=== PATIENT | male | born 1950 | race Caucasian/White ===

== ENCOUNTER → 2016-06-25 | Outpatient (REF) | payer OTHER ==
[2016-06-25 11:09] LABS: BLOOD UREA NITROGEN 22 MG/DL (7-18); CREATININE FOR GFR 0.85 MG/DL (0.70-1.30); GLOMERULAR FILTRATION RATE > 60.0 (>49)
== END ==
LOC: M LABDRAW1 10:55
PROVIDERS: ATTEND Nurse Practitioner Adult Health
DX: R31.0 Gross hematuria (principal)

== ENCOUNTER → 2016-11-04 | Outpatient (REF) | payer OTHER | LOC: M LABDRAW1 11:34 | PROVIDERS: ATTEND Internal Medicine Endocrinology, Diabetes & Metabolism | DX: E11.65 Type 2 diabetes mellitus with hyperglycemia (principal) ==

== ENCOUNTER → 2016-12-29 | Outpatient (REF) | payer OTHER | LOC: M LABDRAW1 18:02 | PROVIDERS: ATTEND Nurse Practitioner Adult Health | DX: N40.1 Benign prostatic hyperplasia with lower urinary tract symptoms (principal) ==

== ENCOUNTER → 2017-02-24 | Outpatient (CLI) | payer OTHER ==
[2017-02-26 00:06] LABS: Lyme Disease IgG/IgM Antibodie <0.91 ISR (0.00-0.90); Lyme Disease IgM Ab Quantitati <0.80 index (0.00-0.79)
== END ==
LOC: M SMT 09:13
PROVIDERS: ATTEND Physician Assistant
DX: R53.83 Other fatigue (principal)

== ENCOUNTER 2017-06-22 11:08 | Day surgery (SDC) | payer BC, OTHER ==
[2017-06-22] MEDS ORDERED: NS 1,000 ML IV (11:15)
[2017-06-22 12:06] LABS: BEDSIDE GLUCOSE 107 MG/DL (80-115)
[2017-06-22] MEDS ORDERED: LIDOCAINE 2% INJ 100 MG/5 ML SDV (FOR ANES.) As Ordered (13:00)
[2017-06-22] MEDS ORDERED: PROPOFOL 200 MG/20 ML VIAL As Ordered ×2 (13:00→13:01)
== END 2017-06-22 13:50 | disposition home or self-care (01) ==
LOC: M OPP 11:08
DX: Z12.11 Encounter for screening for malignant neoplasm of colon (principal); K64.0 First degree hemorrhoids; K57.30 Diverticulosis of large intestine without perforation or abscess without bleeding; D12.3 Benign neoplasm of transverse colon; Z86.010 Personal history of colon polyps; I10 Essential (primary) hypertension; E78.5 Hyperlipidemia, unspecified; K21.9 Gastro-esophageal reflux disease without esophagitis; N40.0 Benign prostatic hyperplasia without lower urinary tract symptoms; R51 Headache; R06.83 Snoring; E10.8 Type 1 diabetes mellitus with unspecified complications; Z79.4 Long term (current) use of insulin; Z79.82 Long term (current) use of aspirin; Z79.899 Other long term (current) drug therapy
CPT/HCPCS: 45380

== ENCOUNTER → 2018-01-11 | Outpatient (REF) | payer MEDICARE, OTHER, BC ==
[2018-01-11 13:40] LABS: PROSTATIC SPECIFIC AG MONITOR 0.54 NG/ML (< 4.0)
[2018-01-11 13:46] LABS: TESTOSTERONE 365 NG/DL (241-827)
== END ==
LOC: M LABDRAW1 09:17
DX: N40.1 Benign prostatic hyperplasia with lower urinary tract symptoms (principal)
CPT/HCPCS: 84403

== ENCOUNTER → 2018-05-23 | Outpatient (REF) | payer MEDICARE, OTHER ==
[2018-05-23 16:19] LABS: ALBUMIN 4.4 GM/DL (3.2-5.2); ALBUMIN/GLOBULIN RATIO 1.47 (1.00-1.93); ALKALINE PHOSPHATASE 39 U/L (45-117); ALT/SGPT 47 U/L (12-78); ANION GAP 8 MEQ/L (8-16); AST/SGOT 24 U/L (7-37); BILIRUBIN,TOTAL 0.4 MG/DL (0.2-1.0); BLOOD UREA NITROGEN 32 MG/DL (7-18); CALCIUM LEVEL 9.2 MG/DL (8.8-10.2); CARBON DIOXIDE LEVEL 27 MEQ/L (21-32); CHLORIDE LEVEL 105 MEQ/L (98-107); CHOLESTEROL LEVEL 144 MG/DL (<200); CHOLESTEROL RISK RATIO 4.235 (<5); CREATININE FOR GFR 1.42 MG/DL (0.70-1.30); FERRITIN 116 NG/ML (26-388); GLOMERULAR FILTRATION RATE 53.3 (>49); GLUCOSE, FASTING 187 MG/DL (70-100); HDL CHOLESTEROL 34 MG/DL (>40); IRON (FE) 82 UG/DL (65-175); LDL CHOLESTEROL 65 MG/DL (<100); NON-HDL-C 110 MG/DL; PERCENT SATURATION 20.2 % (19.7-50.0); POTASSIUM SERUM 4.9 MEQ/L (3.5-5.1); SODIUM LEVEL 140 MEQ/L (136-145); TOTAL IRON BINDING CAPACITY 406 UG/DL (250-450); TOTAL PROTEIN 7.4 GM/DL (6.4-8.2); TRIGLYCERIDES LEVEL 225 MG/DL (<150)
[2018-05-23 16:32] LABS: BASO % 0.6 % (0.0-1.0); EOS # 0.1 10^3/uL (0.0-0.50); EOS % 1.6 % (0.0-3.0); HEMATOCRIT 50.1 % (42.0-52.0); HEMOGLOBIN 16.9 g/dl (13.5-17.5); IMMATURE GRANULOCYTE % 0.5 % (0-3.0); LYMPH % 31.3 % (24.0-44.0); MEAN CORPUSCULAR HEMOGLOBIN 29.3 pg (27.0-33.0); MEAN CORPUSCULAR HGB CONC 33.7 g/dl (32.0-36.5); MONO # 0.6 10^3/uL (0.0-0.8); MONO % 10.1 % (0.0-5.0); NEUTROPHILS # 3.5 10^3/uL (1.8-7.7); NEUTROPHILS % 55.9 % (36.0-66.0); PLATELET COUNT, AUTOMATED 219 10^3/uL (150-450); RED BLOOD COUNT 5.76 10^6/uL (4.30-6.10); WHITE BLOOD COUNT 6.2 10^3/uL (4.0-10.0)
[2018-05-23 17:12] LABS: ESTIMATED AVERAGE GLUCOSE 157 MG/DL (60-110); HEMOGLOBIN A1c 7.1 %
[2018-05-25 14:16] LABS: PSA TOTAL 0.5 ng/mL (0.0-4.0)
== END ==
LOC: M LABDRAW1 12:50
DX: E11.9 Type 2 diabetes mellitus without complications (principal); N40.1 Benign prostatic hyperplasia with lower urinary tract symptoms; E83.10 Disorder of iron metabolism, unspecified
CPT/HCPCS: 83550

== ENCOUNTER → 2018-06-26 | Outpatient (REF) | payer MEDICARE, OTHER ==
[~2018-06-26] MED LIST: ASPI1TAB PO; BENI1TAB3 PO; FARX1TAB3 PO; FENO50CA PO; GLIP10TA6 PO; GLIP5TAB20 PO; GLIP5TAB8 PO; IBUPOTC PO; LANTINJ4 SC; LEVI20TA39 PO; METF10004 PO; MULT1TAB10 PO; TYLE325C PO; VITA100067 PO; VITA50005 PO; ZOCO40TA PO; [UNRECOGNIZED DRUG - CODE] PO
[2018-06-26 18:31] LABS: CALCIUM LEVEL 9.2 MG/DL (8.8-10.2); CREATININE FOR GFR 1.34 MG/DL (0.70-1.30); POTASSIUM SERUM 4.3 MEQ/L (3.5-5.1)
[2018-06-26 18:43] LABS: TOTAL 25(OH) VITAMIN D 60.9 NG/ML (30.0-100.0)
== END ==
LOC: M LABDRAW1 17:09
PROVIDERS: ATTEND Nurse Practitioner Family
DX: E11.65 Type 2 diabetes mellitus with hyperglycemia (principal); E55.9 Vitamin D deficiency, unspecified

== ENCOUNTER → 2022-11-08 | Outpatient (REF) | payer MEDICARE, OTHER ==
[~2022-11-08] MED LIST changes: -ASPI1TAB PO; +ASPI81TA26 PO; -BENI1TAB3 PO; +OLME20TA55 PO; +SIMV-254 PO; -ZOCO40TA PO
[2022-11-08 19:38] LABS: CREATININE, URINE 15.8 MG/DL; MAU/CREAT RATIO 75.9 MCG/MG (0.0-30.0)
== END ==
LOC: M LAB REF 18:25
PROVIDERS: ATTEND Internal Medicine
DX: E11.65 Type 2 diabetes mellitus with hyperglycemia (principal)

== ENCOUNTER 2023-01-26 06:28 | Day surgery (SDC) | payer MEDICARE, BC, OTHER ==
[~2023-01-26] VITALS: Ht 165.1 cm; Wt 92.7 kg
[~2023-01-26 06:28] MED LIST changes: +CALCCAP4 PO; +DULA3PEN; +ERGO500029 PO; +FENO200C24 PO; +LOSA100T46 PO; +METF-838 PO; +NS 1,000 ML IV ONE; +SIMV40TA20 PO; +THERTAB52 PO; +VITA100093 PO
[2023-01-26 08:33] VITALS: TEMP 97.6
[2023-01-26 08:52] VITALS: BP 157/75; O2SAT 96
== END 2023-01-26 09:00 | disposition home or self-care (01) ==
LOC: M OPP 06:28
PROVIDERS: ATTEND Internal Medicine Gastroenterology
DX: Z12.11 Encounter for screening for malignant neoplasm of colon (principal); Z86.010 Personal history of colon polyps; K64.0 First degree hemorrhoids; K57.30 Diverticulosis of large intestine without perforation or abscess without bleeding; Z79.02 Long term (current) use of antithrombotics/antiplatelets; Z79.4 Long term (current) use of insulin; Z79.82 Long term (current) use of aspirin; Z79.899 Other long term (current) drug therapy

== ENCOUNTER → 2024-10-25 | Outpatient (CLI) | payer MEDICARE, BC ==
[~2024-10-25] MED LIST changes: +GLIP-318 PO; +GLIP10TA15 PO; -GLIP10TA6 PO; +GLIP5TAB17 PO; -GLIP5TAB20 PO; -GLIP5TAB8 PO; -NS 1,000 ML IV ONE
== END ==
LOC: M CARPUL 15:03
PROVIDERS: ATTEND Registered Nurse
DX: R94.31 Abnormal electrocardiogram [ECG] [EKG] (principal); R07.9 Chest pain, unspecified

== ENCOUNTER → 2025-01-22 | Outpatient (CLI) | payer MEDICARE, BC | LOC: M PLAIMG 10:28 | PROVIDERS: ATTEND Registered Nurse | DX: I08.0 Rheumatic disorders of both mitral and aortic valves (principal); I37.1 Nonrheumatic pulmonary valve insufficiency; I77.810 Thoracic aortic ectasia ==